=== PATIENT | male | born 1985 | race Two or more races ===

== ENCOUNTER 2017-07-06 11:18 | Observation (INO) | payer OTHER ==
[~2017-07-06] VITALS: Ht 170.2 cm; Wt 126.0 kg
[~2017-07-06 11:18] MED LIST: HYDR-3237 PO
[2017-07-06] MEDS ORDERED: OMEP-110 PO (14:29)
[2017-07-06] MEDS ORDERED: ONDANSETRON 2MG/ML, 2ML IVPush ONE (14:30)
[2017-07-06] MEDS ORDERED: MORPHINE SULFATE 4 MG/ML, 1ML IVPush PRN (14:30)
[2017-07-06] MEDS ORDERED: SODIUM CHLORIDE 0.9% 1,000ML IVBOLUS ONE (14:30)
[2017-07-06] MEDS ORDERED: MORPHINE SULFATE 4 MG/ML, 1ML ONE (14:34)
[2017-07-06] MEDS ORDERED: ONDANSETRON 2MG/ML, 2ML ONE ×3 (14:34→19:13)
[2017-07-06 14:39] LABS: HEMATOCRIT 48.9 % (39.2-51.8); HEMOGLOBIN 16.4 g/dL (13.7-18.0); WHITE BLOOD COUNT 14.6 x10^3/uL (3.4-10)
[2017-07-06 14:49] LABS: ASPARTATE AMINO TRANSFERASE 10 U/L (15-37); BLOOD UREA NITROGEN 9 mg/dL (7-18)
[2017-07-06] MEDS ORDERED: METRONIDAZOLE PMX 500MG/100ML 100 ML IVPB ONE (16:00)
[2017-07-06] MEDS ORDERED: HYDROmorphone 1 MG/ML, 1ML IVPush PRN (16:00)
[2017-07-06] MEDS ORDERED: CEFOTETAN PMX 1GM/50ML 50 ML IVPB ONE (16:00)
[2017-07-06] MEDS ORDERED: CEFOTETAN PMX 1GM/50ML 50 ML ONE (16:10)
[2017-07-06] MEDS ORDERED: HYDROmorphone 1 MG/ML, 1ML ONE ×2 (16:11→18:26)
[2017-07-06] MEDS ORDERED: METRONIDAZOLE PMX 500MG/100ML 100 ML ONE (16:25)
[2017-07-06] MEDS ORDERED: MIDAZOLAM 1 MG/ML, 2ML ONE (17:41)
[2017-07-06] MEDS ORDERED: FENTANYL PF 250 MCG/5ML ONE (17:41)
[2017-07-06] MEDS ORDERED: BUPIVACAINE/PF-EPI 0.5% 1:200K ONE (17:53)
[2017-07-06] MEDS ORDERED: GLYCOPYRROLATE 0.2MG/1ML ONE (18:04)
[2017-07-06] MEDS ORDERED: SUCCINYLCHOLINE 20 MG/ML, 10ML ONE (18:04)
[2017-07-06] MEDS ORDERED: NEOSTIGMINE 1 MG/ML, 10ML ONE (18:04)
[2017-07-06] MEDS ORDERED: DEXAMETHASONE 4 MG/ML, 5ML ONE ×2 (18:04→19:15)
[2017-07-06] MEDS ORDERED: ROCURONIUM 10 MG/ML ONE ×2 (18:04)
[2017-07-06] MEDS ORDERED: PROPOFOL 10 MG/ML, 20ML ONE (18:04)
[2017-07-06] MEDS ORDERED: ACETAMINOPHEN 650 MG/20.3 ML UDC ONE (18:26)
[2017-07-06] MEDS ORDERED: ACETAMINOPHEN 325 MG/10.15 ML UDC ONE (18:26)
[2017-07-06] MEDS ORDERED: FENTANYL PF 100 MCG/2ML ONE (18:26)
[2017-07-06] MEDS ORDERED: OXYcodone 5 MG/5 ML ORAL.SOL UDC ONE (18:27)
[2017-07-06] MEDS ORDERED: ONDANSETRON 2MG/ML, 2ML IVPush PRN ×2 (18:30→22:30)
[2017-07-06] MEDS ORDERED: METOCLOPRAMIDE 5 MG/ML, 2ML IV PRN (18:30)
[2017-07-06] MEDS ORDERED: hydrALAzine 20 MG/ML, 1ML IV PRN (18:30)
[2017-07-06] MEDS ORDERED: OXYcodone 5 MG/5 ML ORAL.SOL UDC PO PRN (18:30)
[2017-07-06] MEDS ORDERED: LABETALOL 5MG/ML, 20ML IV PRN (18:30)
[2017-07-06] MEDS ORDERED: ACETAMINOPHEN 325 MG TABLET PO PRN (18:30)
[2017-07-06] MEDS ORDERED: MEPERIDINE/PF 25MG/0.5ML ONE (19:16)
[2017-07-06] MEDS: FENTANYL PF 100 MCG/2ML IV PRN ×2 (19:25→19:35)
[2017-07-06] MEDS ORDERED: MEPERIDINE/PF 25MG/0.5ML IVPush PRN (19:30)
[2017-07-06] MEDS: HYDROmorphone 1 MG/ML, 1ML IV PRN ×2 (19:30→19:52)
[2017-07-06 20:30] VITALS: BP 95/60
[2017-07-06] MEDS ORDERED: OXYcodone IR 5MG TABLET PO PRN (22:30)
[2017-07-06] MEDS ORDERED: morphine SULFATE 10 MG/ML, 1ML IVPush PRN (22:30)
[2017-07-07 03:51] VITALS: BP 123/74
[2017-07-07 07:01] VITALS: BP 112/71
[2017-07-07] MEDS ORDERED: OXYC10TA6 PO (10:50)
== END 2017-07-07 11:05 | disposition home or self-care (01) ==
LOC: ED 11:19 → EDIP 11:20 → ED 16:14 → INTOOBSV 16:25 → EDIP 16:25 → UNDOADMOB 16:25 → EDIP 21:28 → 4NOR 21:28 → DCLOUNGE 07-07 10:35 → 4NOR 07-07 10:35 → DCLOUNGE 07-07 10:35 → UNDODISOB 07-07 11:05 → UNDODISIN 07-07 11:05
PROVIDERS: ADMIT Surgery; ATTEND Surgery
DX: K80.00 Calculus of gallbladder with acute cholecystitis without obstruction (principal); G35 Multiple sclerosis; K21.9 Gastro-esophageal reflux disease without esophagitis
CPT/HCPCS: 36415; 47562; 76700; 80053; 81003; 83690; 85025; 88304; 96365; 96367; 96375; 99285; G0378; J0330; J1100; J1170; J2175; J2250; J2405; J2704; J2710; J3010; J7030; S0074; J3490

== ENCOUNTER → 2017-10-31 | Outpatient (CLI) | payer OTHER ==
[~2017-10-31] MED LIST changes: +GADOBUTROL 10 MMOL/10 ML PFS ONE; +OMEP-110 PO; +OXYC10TA6 PO
== END | disposition home or self-care (01) ==
LOC: CFH 11:01
PROVIDERS: ATTEND Nurse Practitioner Family
DX: J32.0 Chronic maxillary sinusitis (principal); R90.82 White matter disease, unspecified
CPT/HCPCS: 70553; A9585